=== PATIENT | female | born 1985 | race Caucasian/White ===

== ENCOUNTER 2018-04-25 14:52 | Outpatient (CLI) | payer OTHER ==
--- NOTE | 2018-04-26 01:26 | Ultrasound Report ---
Reason: PERIPHERAL VASCULAR DISEASE,CHIBLAINS Procedure Date: 04/25/2018 Accession Number: [id number] / [id number] Procedure: US - Duplex Ext Veins Bilateral CPT Code: FULL RESULT: EXAM: BILATERAL LOWER EXTREMITY VENOUS ULTRASOUND EXAM DATE: 04/25/2018 03:38 PM. CLINICAL HISTORY: PERIPHERAL VASCULAR DISEASE,CHIBLAINS. COMPARISON: None. TECHNIQUE: Real-time sonographic vascular imaging was performed by the integrated circuit layout designer through the lower extremities utilizing both color-flow and Doppler spectral analysis. Multiple credit resolution representative static images were saved for review. FINDINGS: Right: Common Femoral Vein (CFV): Normal. CFV-GSV Junction: Normal. Profunda Femoral Vein (PFV): Normal. Femoral Vein (FV) Prox: Normal. Femoral Vein (FV) Mid: Normal. Femoral Vein (FV) Dist: Normal. Popliteal Vein: Normal. Posterior Tibial Veins: Normal. Peroneal Veins: Normal. Left: Common Femoral Vein (CFV): Normal. CFV-GSV Junction: Normal. Profunda Femoral Vein (PFV): Normal. Femoral Vein (FV) Prox: Normal. Femoral Vein (FV) Mid: Normal. Femoral Vein (FV) Dist: Normal. Popliteal Vein: Normal. Posterior Tibial Veins: Normal. Peroneal Veins: Normal. Other: None. IMPRESSION: No evidence for deep venous thrombosis bilaterally. [facility]
== END 2018-04-25 14:53 | disposition home or self-care (01) ==
LOC: DI 14:52
PROVIDERS: ATTEND Physician Assistant
DX: I73.9 Peripheral vascular disease, unspecified (principal); T69.1XXA Chilblains, initial encounter
CPT/HCPCS: 93970